=== PATIENT | female | born 1980 | race Caucasian/White ===

== ENCOUNTER 2017-07-16 01:16 | Emergency (ER) | payer OTHER ==
[~2017-07-16] VITALS: Ht 154.9 cm; Wt 63.5 kg
[2017-07-16] MEDS ORDERED: fentaNYL INJECTION 100 MCG/2 ML AMP IVP ONE (01:30)
[2017-07-16] MEDS ORDERED: ACETAMINOPHEN 500 MG TAB (TYLENOL) PO ONE (01:30)
[2017-07-16] MEDS ORDERED: ONDANSETRON 4 MG/2 ML (SDV) Z0FRAN IVP ONE (01:30)
--- NOTE | 2017-07-16 01:34 | ED Abdominal Pain ---
General Stated Complaint: ABD PAIN Source of Information: Patient, EMS Exam Limitations: No Limitations History of Present Illness Date Seen by Provider: Jul 16, 2017 Time Seen by Provider: 01:16 Initial Comments The patient presents to ER by EMS with a chief complaint of for the last 5 hours she's been experiencing severe lower bilateral abdominal pain. She's also been having some bleeding and spotting with clots since yesterday. She denies any illicit drug use. She says she is a with one miscarriage. She does not know her last missed her period but she thinks was in April putting her somewhere around 3 months. She has not taken anything for the pain tonight. She is not having painful urination. She is having some nausea without vomiting. No shortness breath, cough, chest pain. She says she had prematurity with previous pregnancies but she has not established with an OB for this . The patient rates her pain is severe. It is made worse by straining her legs or sitting up. She is not having any diarrhea or constipation. Allergies and Home Medications Allergies Coded Allergies: No Known Drug Allergies (Unverified , 07/16/17) Patient Home Medication List Home Medication List Reviewed: Yes Review of Systems Constitutional: see HPI (history of present illness is limited secondary to her pain.), chills, diaphoresis; No fever EENTM: No Blurred Vision, No Double Vision Respiratory: Denies Cough, Denies Orthopnea Cardiovascular: Denies Chest Pain, Denies Edema, Denies Irregular Heart Rate Gastrointestinal: See HPI; Denies Abdomen Distended; Abdominal Pain; Denies Constipated, Denies Diarrhea; Nausea, Poor Fluid Intake; Denies Vomiting Genitourinary: Denies Burning, Denies Discharge Musculoskeletal: No back pain, No joint pain Skin: No pruritus, No rash Past Boxawcc-Isqmgj-Bkgxdc Hx Patient Social History Alcohol Use: Occasionally Uses Recreational Drug Use: Yes Smoking Status: Current Everyday Smoker Type Used: Cigarettes Recent Foreign Travel: No Contact w/Someone Who Travel: No Physical Exam Vital Signs Vital Signs - First Documented 07/16/17 01:16 Temp 97.0 Pulse 76 Resp 20 B/P (MAP) 107/58 (74) Pulse Ox 100 O2 Delivery Room Air Capillary Refill : General Appearance: WD/WN, moderate distress HEENT: PERRL/EOMI, pharynx normal Neck: non-tender, normal inspection Respiratory: chest non-tender, lungs clear, normal breath sounds, no respiratory distress, no accessory muscle use Cardiovascular: normal peripheral pulses, regular rate, rhythm Peripheral Pulses: 2+ Dorsalis Pedis (R), 2+ Left Dors-Pedis (L), 2+ Radial Pulses (R), 2+ Radial Pulses (L) Gastrointestinal: normal bowel sounds, guarding; No rebound; tenderness ( bilateral lower quadrants and suprapubic region) Genital/Rectal: other (blood at the vaginal introitus without clots seen) Neurologic/Psychiatric: alert, oriented x 3, other (agitated, anxious) Skin: normal color, warm/dry Progress/Results/Core Measures Lab Results Laboratory Tests Test 07/16/17 01:40 Range/Units White Blood Count 16.7 H 4.3-11.0 10^3/uL Red Blood Count 3.99 L 4.35-5.85 10^6/uL Hemoglobin 12.4 11.5-16.0 G/DL Hematocrit 36 35-52 % Mean Corpuscular Volume 90 80-99 FL Mean Corpuscular Hemoglobin 31 25-34 PG Mean Corpuscular Hemoglobin Concent 35 32-36 G/DL Red Cell Distribution Width 12.0 10.0-14.5 % Platelet Count 264 130-400 10^3/uL Mean Platelet Volume 10.7 H 7.4-10.4 FL Neutrophils (%) (Auto) 78 H 42-75 % Lymphocytes (%) (Auto) 15 12-44 % Monocytes (%) (Auto) 5 0-12 % Eosinophils (%) (Auto) 2 0-10 % Basophils (%) (Auto) 0 0-10 % Neutrophils # (Auto) 13.0 H 1.8-7.8 X 10^3 Lymphocytes # (Auto) 2.5 1.0-4.0 X 10^3 Monocytes # (Auto) 0.9 0.0-1.0 X 10^3 Eosinophils # (Auto) 0.3 0.0-0.3 10^3/uL Basophils # (Auto) 0.0 0.0-0.1 10^3/uL Neutrophils % (Manual) 74 % Lymphocytes % (Manual) 19 % Monocytes % (Manual) 3 % Eosinophils % (Manual) 0 % Basophils % (Manual) 0 % Band Neutrophils 2 % Reactive Lymphocytes 2 % Blood Morphology Comment NORMAL Sodium Level 140 135-145 MMOL/L Potassium Level 3.2 L 3.6-5.0 MMOL/L Chloride Level 108 H 98-107 MMOL/L Carbon Dioxide Level 22 21-32 MMOL/L Anion Gap 10 5-14 MMOL/L Blood Urea Nitrogen 12 7-18 MG/DL Creatinine 0.85 0.60-1.30 MG/DL Estimat Glomerular Filtration Rate > 60 BUN/Creatinine Ratio 14 Glucose Level 146 H 70-105 MG/DL Calcium Level 8.3 L 8.5-10.1 MG/DL Magnesium Level 2.0 1.8-2.4 MG/DL Total Bilirubin 0.3 0.1-1.0 MG/DL Aspartate Amino Transf (AST/SGOT) 15 5-34 U/L Alanine Aminotransferase (ALT/SGPT) 12 0-55 U/L Alkaline Phosphatase 66 40-136 U/L Troponin I < 0.30 <0.30 NG/ML Total Protein 6.1 L 6.4-8.2 GM/DL Albumin 3.8 3.2-4.5 GM/DL Human Chorionic Gonadotropin, Quant 849 H <5 MIU/ML Serum Alcohol < 10 <10 MG/DL My Orders Orders - SANTIAGO MAYFIELD Alcohol (07/16/17:21) Cbc With Automated Diff (07/16/17:21) Comprehensive Metabolic Panel (07/16/17:21) Drug Screen Stat (Urine) (07/16/17:21) Hcg,Quantitative (07/16/17:21) Magnesium (07/16/17:21) Troponin I (07/16/17:21) Ua Culture If Indicated (07/16/17:21) Abo Rh Type (07/16/17:21) Us Ob Single Fetus<14 [id number] (07/16/17 01:21) Ondansetron Injection (Zofran Injectio (07/16/17 01:30) Acetaminophen Tablet (Tylenol Tablet) (07/16/17 01:30) Fentanyl Injection (Sublimaze Injection (07/16/17 01:30) Lorazepam Injection (Ativan Injection) (07/16/17 01:49) Lorazepam Injection (Ativan Injection) (07/16/17 02:00) Manual Differential (07/16/17 01:40) Medications Given in ED Current Medications Medications Dose Ordered Sig/Neel Route Start Time Stop Time Status Last Admin Dose Admin Fentanyl Citrate 50 mcg ONCE ONCE IVP 07/16/17 01:30 07/16/17 01:31 DC 07/16/17 01:35 50 MCG Lorazepam 2 mg ONCE ONCE IVP 07/16/17 02:00 07/16/17 02:01 DC 07/16/17 01:57 2 MG Ondansetron HCl 4 mg ONCE ONCE IVP 07/16/17 01:30 07/16/17 01:31 DC 07/16/17 01:35 4 MG Vital Signs/I&O 07/16/17 01:16 Temp 97.0 Pulse 76 Resp 20 B/P (MAP) 107/58 (74) Pulse Ox 100 O2 Delivery Room Air Progress Note #1: Time: 02:36 Progress Note Leukocytosis and mild hypokalemia. Could be due partially to her nausea and vomiting. She does appear to be miscarrying and has a sac in the uterus with no apparent pole. After 50 g of fentanyl and 2 mg of Ativan and she is much more comfortable. Progress Note #2: Time: 04:15 Progress Note The patient feels much better now. She has not been able to provide a urine sample. She has an appointment at 2:00 this afternoon with her [employer] and she can follow-up and provide a urine sample there. Diagonstic Imaging: Ultrasound Plain Films/CT/US/NM/MRI: pelvis (transvaginal OB less than 14 weeks) Comments Ultrasound guesstimates 14 weeks. There is an amniotic sac that is empty with no apparent pole. Cervix is dilated. There is an irregular shaped intrauterine fluid collection measuring approximately 10 x 4 x 4 cm. It contains internal echogenic debris. No evidence of a pole or yolk sac. Findings concerning for an abnormal first trimester . Please correlate with beta hCG levels. Reviewed: Reviewed Night Hawk Study, Reviewed by Me Departure Impression Primary Impression: Incomplete miscarriage with blood clot Disposition: HOME, SELF-CARE Condition: Improved Departure-Patient Inst. Decision time for Depature: 04:16 Patient Instructions: Miscarriage (DC) Add. Discharge Instructions: Please keep your follow-up appointment at 2:00 this afternoon with the [employer]. SANTIAGO MAYFIELD Jul 16, 2017 01:34
[2017-07-16] MEDS ORDERED: LORazepam INJ 2 MG/ML (ATIVAN) VIAL ONE (01:49)
[2017-07-16] MEDS ORDERED: LORazepam INJ 2 MG/ML (ATIVAN) VIAL IVP ONE (02:00)
[2017-07-16 02:03] LABS: BASOPHILS % (AUTO) 0 % (0-10); EOSINOPHILS # (AUTO) 0.3 10^3/uL (0.0-0.3); EOSINOPHILS % (AUTO) 2 % (0-10); HEMATOCRIT 36 % (35-52); HEMOGLOBIN 12.4 G/DL (11.5-16.0); LYMPHOCYTES # (AUTO) 2.5 X 10^3 (1.0-4.0); LYMPHOCYTES % (AUTO) 15 % (12-44); MEAN CORPUSCULAR HEMOGLOBIN 31 PG (25-34); MEAN CORPUSCULAR HGB CONC 35 G/DL (32-36); MEAN CORPUSCULAR VOLUME 90 FL (80-99); MEAN PLATELET VOLUME 10.7 FL (7.4-10.4); MONOCYTES # (AUTO) 0.9 X 10^3 (0.0-1.0); MONOCYTES % (AUTO) 5 % (0-12); NEUTROPHILS % (AUTO) 78 % (42-75); PLATELET COUNT 264 10^3/uL (130-400); RED BLOOD COUNT 3.99 10^6/uL (4.35-5.85); WHITE BLOOD COUNT 16.7 10^3/uL (4.3-11.0)
[2017-07-16 02:19] LABS: BAND NEUTROPHILS 2 %; BASOPHILS % (MANUAL) 0 %; EOSINOPHILS % (MANUAL) 0 %; LYMPHOCYTES % (MANUAL) 19 %; MONOCYTES % (MANUAL) 3 %; NEUTROPHILS % (MANUAL) 74 %; REACTIVE LYMPHOCYTES 2 %
[2017-07-16 02:20] LABS: RBC MORPH NORMAL
[2017-07-16 02:29] LABS: ALANINE AMINOTRANSFERASE 12 U/L (0-55); ALBUMIN 3.8 GM/DL (3.2-4.5); ALKALINE PHOSPHATASE 66 U/L (40-136); BILIRUBIN,TOTAL 0.3 MG/DL (0.1-1.0); BUN/CREATININE RATIO 14; CALCIUM 8.3 MG/DL (8.5-10.1); CARBON DIOXIDE 22 MMOL/L (21-32); CHLORIDE 108 MMOL/L (98-107); CREATININE SERUM 0.85 MG/DL (0.60-1.30); GFR ESTIMATED > 60; GLUCOSE 146 MG/DL (70-105); POTASSIUM 3.2 MMOL/L (3.6-5.0); SODIUM 140 MMOL/L (135-145); TOTAL PROTEIN 6.1 GM/DL (6.4-8.2)
[2017-07-16 04:45] VITALS: BP 98/55
--- OUTSIDE RECORDS SUMMARY | 2017-07-16 12:24 | XMS REPORT ---
Author Author Atilio Bey [facility] Address [address] [place], [place] [id number] Care Team Providers Care Magisterial District Judge Name Role Phone Atilio Bey PCP Atilio Bey PreferredProvider Allergies and Adverse Reactions Name Reaction Notes PENICILLINS neck swelling Plan of Treatment Not available. Medications Active Name Start Date Estimated Completion Date SIG Comments alprazolam 1 mg oral tablet 01/09/2017 take 1 tablet by oral route 2 times a day as needed Breakthrough anxiety. No more than 2 a day Name Start Date Expiration Date SIG Comments acyclovir 200 mg oral capsule 10/24/2010 01/22/2011 take 2 capsule (200 mg) by oral route 2 times a day for 30 days TriAdvance 90-1-50 mg oral tablet 11/11/2010 11/06/2011 take 1 tablet by oral route once daily for 30 days Diflucan 150 mg oral tablet 01/17/2011 01/18/2011 take 1 tablet (150 mg) by oral route once Flagyl 500 mg oral tablet 12/15/2011 12/22/2011 take 1 tablet (500 mg) by oral route 2 times per day for 7 days Cipro 500 mg oral tablet 01/05/2015 01/12/2015 take 1 tablet (500 mg) by oral route every 12 hours for 7 days azithromycin 250 mg oral tablet 08/11/2015 08/16/2015 take 2 tablets (500 mg) by oral route once daily for 1 day then 1 tablet (250 mg) by oral route once daily for 4 days Augmentin 875-125 mg oral tablet 02/27/2016 03/05/2016 take 1 tablet by oral route every 12 hours for 7 days Zoloft 50 mg oral tablet 06/19/2016 12/16/2016 take 1 tablet (50 mg) by oral route once daily for 30 days Valium 2 mg oral tablet 06/19/2016 07/19/2016 take 1 tablet (2 mg) by oral route 2 times per day for 30 days metronidazole 500 mg oral tablet 12/18/2016 take 4 tablets (2 gram) by oral route once daily for 1 day azithromycin 250 mg oral tablet 12/18/2016 take 4 tablets (1,000 mg) by oral route as a single dose for 1 day Discontinued Name Start Date Discontinued Date SIG Comments Premesis Rx 1-200-75-12 cn-rv-am-mcg oral tablet, ER multiphase 24 hr 201006/10/2010 take 1 tablet by oral route once daily for 30 days Completion of Therapy Problem List Description Status Onset abnormal pap Active Depression and anxiety Active 11/01/2013 Vital Signs Date Time BP-Sys(mm[Hg] BP-Josee(mm[Hg]) HR(bpm) RR(rpm) Temp WT HT HC BMI BSA BMI Percentile O2 Sat(%) 01/09/2017 10:46:00 AM 120 mmHg 70 mmHg 82 bpm 16 rpm 97.1 F 160 lbs 61 in 30.23 kg/m2 1.77 m2 98 % 12/18/2016 5:44:00 PM 116 mmHg 78 mmHg 74 bpm 18 rpm 96.9 F 156 lbs 61 in 29.4756 kg/m 1.7451 m 99 % 11/13/2016 1:16:00 PM 119 mmHg 67 mmHg 68 bpm 98.7 F 158 lbs 61 in 29.85 kg/m2 1.76 m2 06/19/2016 3:14:00 PM 110 mmHg 66 mmHg 72 bpm 16 rpm 97.3 F 149.25 lbs 61 in 28.2003 kg/m 1.707 m 99 % 02/27/2016 5:28:00 PM 102 mmHg 70 mmHg 88 bpm 97.3 F 152 lbs 61 in 28.72 kg/m2 1.72 m2 96 % 08/29/2015 4:27:00 PM 110 mmHg 70 mmHg 83 bpm 16 rpm 97.6 F 159 lbs 99 % 08/11/2015 1:32:00 PM 120 mmHg 80 mmHg 90 bpm 16 rpm 98.9 F 156 lbs 61 in 29.48 kg/m2 1.75 m2 98 % 01/05/2015 11:22:00 AM 110 mmHg 70 mmHg 71 bpm 16 rpm 97.8 F 165 lbs 99 % 10/28/2013 1:39:00 PM 104 mmHg 70 mmHg 67 bpm 16 rpm 97.6 F 155.375 lbs 61 in 29.36 kg/m2 1.74 m2 97 % 07/08/2013 1:45:00 PM 115 mmHg 70 mmHg 72 bpm 16 rpm 143 lbs 98 % 06/03/2013 2:51:00 PM 130 mmHg 70 mmHg 78 bpm 16 rpm 98.2 F 148 lbs 60 in 28.90 kg/m2 1.69 m2 99 % 11/10/2011 3:17:00 PM 108 mmHg 68 mmHg 68 bpm 98.4 F 139.375 lbs 60 in 27.2195 kg/m 1.6359 m 02/18/2011 4:03:00 PM 114 mmHg 68 mmHg 83 bpm 97.6 F 01/27/2011 10:50:00 AM 105 mmHg 72 mmHg 70 bpm 97.6 F 146 lbs 60 in 28.5134 kg/m 1.6744 m 06/10/2010 9:37:00 AM 105 mmHg 65 mmHg 94 bpm 98.2 F 143 lbs 60 in 27.93 kg/m2 1.66 m2 Social History Name Description Comments Tobacco Current every day smoker Alcohol Use - Occasional socially when not History of Procedures Date Ordered Description Order Status 11/29/2010 12:00 AM CULTURE OTHR SPECIMN AEROBIC Reviewed 02/19/2015 12:00 AM URINALYSIS AUTO W/SCOPE Reviewed 01/27/2011 12:00 AM CYTOPATH C/V MANUAL Reviewed 01/27/2011 12:00 AM SPECIMEN HANDLING OFFICE-LAB Reviewed 01/27/2011 12:00 AM CHLAMYDIA CULTURE Reviewed 01/27/2011 12:00 AM N.GONORRHOEAE DNA AMP PROB Reviewed 02/18/2011 12:00 AM INSERT INTRAUTERINE DEVICE Reviewed 02/18/2011 12:00 AM Mirena Reviewed 02/18/2011 12:00 AM URINE TEST Reviewed 02/27/2016 12:00 AM Decadron, Per 1 Mg [facility]# [address]-29 Reviewed 02/27/2016 12:00 AM Depo-Medrol, Per 80 Mg [facility]#[address]-80 Reviewed 11/10/2011 12:00 AM TRICHOMONAS ASSAY W/OPTIC Reviewed 11/10/2011 12:00 AM CHYLMD TRACH DNA AMP PROBE Reviewed 11/10/2011 12:00 AM N.GONORRHOEAE DNA AMP PROB Reviewed 11/13/2016 12:00 AM REMOVE INTRAUTERINE DEVICE Reviewed 12/18/2016 6:02 PM URINALYSIS AUTO W/O SCOPE Reviewed 12/18/2016 12:00 AM THER/PROPH/DIAG INJ SC/IM Reviewed 12/18/2016 12:00 AM Rocephin 250 Mg Injection Reviewed 12/18/2016 12:00 AM CHYLMD TRACH DNA AMP PROBE Returned 12/18/2016 12:00 AM N.GONORRHOEAE DNA AMP PROB Reviewed 12/18/2016 12:00 AM URINALYSIS AUTO W/SCOPE Reviewed 06/10/2010 12:00 AM CYTOPATH C/V THIN LAYER Reviewed 06/10/2010 12:00 AM SPECIMEN HANDLING OFFICE-LAB Reviewed 06/10/2010 12:00 AM N.GONORRHOEAE DNA AMP PROB Reviewed 06/10/2010 12:00 AM CHLAMYDIA CULTURE Reviewed 06/10/2010 12:00 AM OBSTETRIC PANEL Reviewed 06/10/2010 12:00 AM HIV-1ANTIBODY Reviewed 06/10/2010 12:00 AM URINALYSIS AUTO W/SCOPE Reviewed 06/10/2010 12:00 AM HERPES SIMPLEX BRANDIE ANTBDY Reviewed 06/10/2010 12:00 AM HERPES SIMPLEX TYPE 1 TEST Reviewed 06/10/2010 12:00 AM TRANSVAGINAL US OBSTETRIC Reviewed 06/10/2010 12:00 AM URINE TEST Reviewed 08/07/2010 12:00 AM OB US >/=14 WKS SNGL FETUS Reviewed 10/03/2010 12:00 AM GLUCOSE TEST Reviewed 10/03/2010 12:00 AM ASSAY OF FIBRONECTIN Reviewed 10/17/2010 12:00 AM COMPLETE CBC W/AUTO DIFF WBC Reviewed 10/17/2010 12:00 AM Type and screen Reviewed 10/17/2010 12:00 AM ASSAY OF FIBRONECTIN Reviewed 10/31/2010 12:00 AM ASSAY OF FIBRONECTIN Reviewed Results Summary Date and Description Results 06/10/2010 10:53 AM RUBELLA 48.0 IU/mLWBC 8.8 RBC 4.12 HGB 12.20 g/dLHCT 36.60 % MCV 89.0 fLMCH 29.60 pgMCHC 33.30 g/dLRDW SD 40 RDW CV 12.50 %MPV 12.10 fLPLT 253 NRBC# 0.00 NRBC% 0.0 %NEUT 68.80 %%LYMP 22.10 %%MONO 5.60 %%EOS 3.30 %%BASO 0.20 %#NEUT 6.07 #LYMP 1.95 #MONO 0.49 #EOS 0.29 #BASO 0.02 MANUAL DIFF NOT IND 06/10/2010 12:23 PM COLOR YELLOW APPEARANCE CLEAR SPEC GRAV 1.020 pH 7.5 PROTEIN NEGATIVE GLUCOSE NEGATIVE KETONE NEGATIVE BILIRUBIN NEGATIVE BLOOD NEGATIVE NITRITE NEGATIVE LEUK SCREEN NEGATIVE WBC/HPF RARE RBC/HPF 0-5 CASTS/ LPF NEGATIVE CRYSTALS TRACE AMORPH MUCOUS THRDS FEW BACTERIA FEW EPITH CELLS 1+ SQUAMOUS TRICHOMONAS NEGATIVE YEAST NEGATIVE CULT ORDERED YES 10/03/2010 1:20 PM GLUCOSE 116.0 mg/dL 10/17/2010 11:30 AM WBC 12.6 RBC 3.69 HGB 11.40 g/dLHCT 33.40 %MCV 91.0 fLMCH 30.90 pgMCHC 34.10 g/dLRDW SD 42 RDW CV 13.0 %MPV 10.60 fLPLT 304 NRBC# 0.00 NRBC% 0.0 %NEUT 66.60 %%LYMP 23.60 %%MONO 7.60 %%EOS 2.0 %%BASO 0.20 %#NEUT 8.38 #LYMP 2.97 #MONO 0.95 #EOS 0.25 #BASO 0.02 MANUAL DIFF NOT IND 11/29/2010 1:08 PM No 12/18/2016 2:07 PM Neisseria Gonorrhoeae NEGATIVE Chlamydia Trachomatis NEGATIVE 12/18/2016 6:02 PM Clarity Ur CLEAR Color Ur LT. YELLOW Glucose Ur-sCnc NEGATIVE Bilirub Ur Ql Strip NEGATIVE Ketones Ur Ql Strip NEGATIVE Sp Gr Ur Qn < =1.005 Hgb Ur Ql Strip NEGATIVE pH Ur-LsCnc 7.0 Prot Ur Ql Strip NEGATIVE Urobilinogen Ur-mCnc 0.2 E.U Nitrite Ur Ql Strip NEGATIVE WBC Est Ur Ql Strip SMALL 12/18/2016 10:10 PM COLOR YELLOW APPEARANCE SL CLOUDY SPEC GRAV 1.010 pH 7.0 PROTEIN NEGATIVE GLUCOSE NEGATIVE mg/dLKETONE NEGATIVE BILIRUBIN NEGATIVE BLOOD NEGATIVE NITRITE NEGATIVE LEUK SCREEN SMALL WBC/HPF 5-10 RBC/HPF NEGATIVE CASTS/ LPF NEGATIVE /LPFCRYSTALS NEGATIVE MUCOUS THRDS NEGATIVE BACTERIA 1+ EPITH CELLS FEW SQUAMOUS /HPFTRICHOMONAS NEGATIVE YEAST NEGATIVE CULT SET UP? YES History Of Immunizations Not available. History of Past Illness Name Date of Onset Comments abnormal pap Depression and anxiety 11/01/2013 test confirmed positive Jun 10 2010 9:38AM , Other Normal Jul 08 2010 2:41PM , Other Normal Oct 03 2010 10:06AM Threatened Premature Labor Oct 03 2010 10:32AM , High Risk Oct 17 2010 10:36AM Threatened Premature Labor Oct 17 2010 11:02AM Threatened Premature Labor Oct 31 2010 12:31PM Group B Strep Screening, Nov 29 2010 10:45AM Post- Follow-Up Jan 27 2011 10:50AM IUD insertion Feb 18 2011 3:58PM Special investigations and examinations; examination or test; examination or test, negative result Feb 18 2011 4:26PM Non-specific vaginitis Nov 10 2011 3:21PM Dysuria Dec 15 2011 1:24PM Anxiety Disorder Jun 03 2013 2:53PM Anxiety Disorder Jul 08 2013 1:46PM Depression and anxiety Oct 28 2013 1:44PM Depression and anxiety Jan 05 2015 11:23AM Acute frontal sinusitis, recurrence not specified Jan 05 2015 11:23AM Dysuria Feb 19 2015 3:06PM Upper respiratory infection Aug 11 2015 1:34PM Depression and anxiety Aug 29 2015 4:29PM Bronchitis Feb 27 2016 5:32PM Anxiety associated with depression Jun 19 2016 3:17PM Encounter for IUD removal Nov 13 2016 1:18PM Unprotected sex Dec 18 2016 5:48PM Dysuria Dec 18 2016 5:48PM Frequency of urination Dec 18 2016 5:48PM Anxiety Jan 09 2017 10:48AM Payers Insurance Name Company Name Plan Name Plan Number Policy Number Policy Group Number Start Date [facility] [id number] N/A [place] Prog [id number] N/A [employer] Financial Assistance [place] [employer] [place] 50 PERCENT April zzzTest Medicare A Test Medicare A [id number] N/A BCBS [employer] [place] [id number] N/A History of Encounters Visit Date Visit Type Provider 01/09/2017 Office visit Atilio Bey CLEAN ROOM ASSEMBLER 12/18/2016 Office visit Alexa Rowe CLEAN ROOM ASSEMBLER 11/13/2016 Office visit Shayna Ferro CLEAN ROOM ASSEMBLER 06/19/2016 Office visit Atilio Bey CLEAN ROOM ASSEMBLER 02/27/2016 Office visit Atilio Bey CLEAN ROOM ASSEMBLER 08/29/2015 Office visit Atilio Bey CLEAN ROOM ASSEMBLER 08/11/2015 Office visit Molly Ramirez CLEAN ROOM ASSEMBLER 01/05/2015 Office visit Atilio Bey CLEAN ROOM ASSEMBLER 10/28/2013 Office visit Atilio Bey CLEAN ROOM ASSEMBLER 07/08/2013 Office visit Atilio Bey CLEAN ROOM ASSEMBLER 06/03/2013 Office visit Atilio Bey CLEAN ROOM ASSEMBLER 11/10/2011 Office visit Luis Fernando Rice MD 02/18/2011 Office visit Luis Fernando Rice MD 01/27/2011 Office visit Luis Fernando Rice MD 11/29/2010 Office visit Luis Fernando Rice MD 11/29/2010 Office visit Guerrero Del Valle MD 11/11/2010 Office visit Luis Fernando Rice MD 10/31/2010 Office visit Luis Fernando Rice MD 10/24/2010 Office visit Luis Fernando Rice MD 10/17/2010 Office visit Luis Fernando Rice MD 10/03/2010 [facility] Luis Fernando Rice MD 10/03/2010 Office visit Luis Fernando Rice MD 09/09/2010 Office visit Luis Fernando Rice MD 08/07/2010 Office visit Luis Fernando Rice MD 07/08/2010 Office visit Luis Fernando Rice MD 06/10/2010 Office visit Luis Fernando Rice MD
--- OUTSIDE RECORDS SUMMARY | 2017-07-16 12:25 | XMS REPORT ---
Author Author Atilio Bey [facility] Address [address] [place], [place] [id number] Care Team Providers Care Yeast Pusher Name Role Phone Atilio Bey PCP Atilio [...] Discontinued Date SIG Comments Premesis Rx 1-200-75-12 la-hi-du-mcg oral tablet, ER multiphase 24 hr 201006/10/2010 [...] 02/27/2016 12:00 AM Decadron, Per 1 Mg [facility]# [address]-32 Reviewed 02/27/2016 12:00 AM Depo-Medrol, Per 80 Mg [facility]#[id number] Reviewed 11/10/2011 12:00 AM TRICHOMONAS ASSAY W/OPTIC [...] Neisseria Gonorrhoeae NEGATIVE Chlamydia Trachomatis NEGATIVE 12/18/2016 10:10 PM COLOR YELLOW APPEARANCE SL [...] Policy Number Policy Group Number Start Date [facility] [id number] N/A [place] Medical [place] Medical [place] Prog [id number] N/A [employer] Financial Assistance [place] [employer] [place] 50 PERCENT April zzzTest Medicare A Test Medicare A [id number] N/A BCBS [employer] [place] [id number] N/A History of Encounters Visit Date Visit Type Provider 01/09/2017 Office visit Atilio Bey LICENSE CLERK 12/18/2016 Office visit Alexa Rowe LICENSE CLERK 11/13/2016 Office visit Shayna Ferro LICENSE CLERK 06/19/2016 Office visit Atilio Bey LICENSE CLERK 02/27/2016 Office visit Atilio Bey LICENSE CLERK 08/29/2015 Office visit Atilio Bey LICENSE CLERK 08/11/2015 Office visit Molly Ramirez LICENSE CLERK 01/05/2015 Office visit Atilio Bey APRN 10/28/2013 Office visit Atilio Bey LICENSE CLERK 07/08/2013 Office visit Atilio Bey LICENSE CLERK 06/03/2013 Office visit Atilio Bey LICENSE CLERK 11/10/2011 Office visit Luis Fernando Rice MD [...] Office visit Luis Fernando Rice MD 10/03/2010 [facility] Luis Fernando Rice MD 10/03/2010 Office visit Luis Fernando Rice MD 09/09/2010 Office visit Luis Fernando Rice MD 08/07/2010 Office visit Luis Fernando Rice MD 07/08/2010 Office visit Luis Fernando Rice MD 06/10/2010 Office visit Luis Fernando Rice MD
--- OUTSIDE RECORDS SUMMARY | 2017-07-16 12:25 | XMS REPORT ---
Author Author Atilio Bey [facility] Address [address] [place], [place] [address] Care Team Providers Care Emergency Department Name Role Phone Atilio Bey PCP Atilio [...] Discontinued Date SIG Comments Premesis Rx 1-200-75-12 ok-ng-vg-mcg oral tablet, ER multiphase 24 hr 201006/10/2010 [...] 02/27/2016 12:00 AM Decadron, Per 1 Mg [facility]# [id number] Reviewed 02/27/2016 12:00 AM Depo-Medrol, Per 80 Mg [facility]#[id number] Reviewed 11/10/2011 12:00 AM TRICHOMONAS ASSAY W/OPTIC [...] Policy Number Policy Group Number Start Date [facility] [id number] N/A [place] Medical [place] Medical [place] Prog [id number] N/A [employer] Financial Assistance [employer] [place] 50 PERCENT April zzzTest Medicare A Test Medicare A [id number] N/A BCBS [employer] [place] [id number] N/A History of Encounters Visit Date Visit Type Provider 01/09/2017 Office visit Atilio Bey CARBIDE TOOL DIE MAKER 12/18/2016 Office visit Alexa Rowe CARBIDE TOOL DIE MAKER 11/13/2016 Office visit Shayna Ferro CARBIDE TOOL DIE MAKER 06/19/2016 Office visit Atilio Bey CARBIDE TOOL DIE MAKER 02/27/2016 Office visit Atilio Bey CARBIDE TOOL DIE MAKER 08/29/2015 Office visit Atilio Bey CARBIDE TOOL DIE MAKER 08/11/2015 Office visit Molly Ramirez CARBIDE TOOL DIE MAKER 01/05/2015 Office visit Atilio Bey APRN 10/28/2013 Office visit Atilio Bey CARBIDE TOOL DIE MAKER 07/08/2013 Office visit Atilio Bey CARBIDE TOOL DIE MAKER 06/03/2013 Office visit Atilio Bey CARBIDE TOOL DIE MAKER 11/10/2011 Office visit Luis Fernando Rice MD [...] Office visit Luis Fernando Rice MD 10/03/2010 [facility] Luis Fernando Rice MD 10/03/2010 Office visit Luis Fernando Rice MD 09/09/2010 Office visit Luis Fernando Rice MD 08/07/2010 Office visit Luis Fernando Rice MD 07/08/2010 Office visit Luis Fernando Rice MD 06/10/2010 Office visit Luis Fernando Rice MD
--- OUTSIDE RECORDS SUMMARY | 2017-07-16 12:26 | XMS REPORT ---
Author Author Atilio eBy [facility] Address [address] [place], [place] [id number] Care Team Providers Care School Cook Name Role Phone Atilio Bey PCP Allergies and Adverse Reactions Name Reaction Notes PENICILLINS neck swelling Plan of Treatment Not available. Medications Active Name Start Date Estimated Completion Date SIG Comments alprazolam 0.5 mg oral tablet 01/05/2015 02/04/2015 take 1 tablet (0.5 mg) by oral route 3 times per day for 30 days Zoloft 50 mg oral tablet 01/05/2015 07/04/2015 take 1 tablet (50 mg) by oral route once daily for 30 days Cipro 500 mg oral tablet 01/05/2015 01/12/2015 take 1 tablet (500 mg) by oral route every 12 hours for 7 days Name Start Date Expiration Date SIG Comments [...] 2 times per day for 7 days Discontinued Name Start Date Discontinued Date SIG Comments Premesis Rx 1-200-75-12 fu-oe-ol-mcg oral tablet, ER multiphase 24 hr 201006/10/2010 take 1 tablet by oral route once daily for 30 days Completion of Therapy Problem List Description Status Onset abnormal pap Active Depression and anxiety Active 11/01/2013 Vital Signs Date Time BP-Sys(mm[Hg] BP-Josee(mm[Hg]) HR(bpm) RR(rpm) Temp WT HT HC BMI BSA BMI Percentile O2 Sat(%) 01/05/2015 11:22:00 AM 110 mmHg 70 mmHg 71 bpm 16 rpm 97.8 F 165 lbs 99 % 10/28/2013 1:39:00 PM 104 mmHg 70 mmHg 67 bpm 16 rpm 97.6 F 155.375 lbs 61 in 29.3575 kg/m 1.7416 m 97 % 07/08/2013 1:45:00 PM 115 mmHg 70 mmHg 72 bpm 16 rpm 143 lbs 98 % 06/03/2013 2:51:00 PM 130 mmHg 70 mmHg 78 bpm 16 rpm 98.2 F 148 lbs 60 in 28.904 kg/m 1.6858 m 99 % 11/10/2011 3:17:00 PM 108 mmHg 68 mmHg 68 bpm 98.4 F 139.375 lbs 60 in 27.22 kg/m2 1.64 m2 02/18/2011 4:03:00 PM 114 mmHg 68 mmHg 83 bpm 97.6 F 01/27/2011 10:50:00 AM 105 mmHg 72 mmHg 70 bpm 97.6 F 146 lbs 60 in 28.51 kg/m2 1.67 m2 06/10/2010 9:37:00 AM 105 mmHg 65 mmHg 94 bpm 98.2 F 143 lbs 60 in 27.9275 kg/m 1.6571 m Social History Name Description Comments Tobacco Current every day smoker Alcohol Use - Occasional socially when not History of Procedures Date Ordered Description Order Status 11/29/2010 12:00 AM CULTURE OTHR SPECIMN AEROBIC Reviewed 01/27/2011 12:00 AM CYTOPATH C/V MANUAL Reviewed 01/27/2011 12:00 AM SPECIMEN HANDLING OFFICE-LAB Reviewed 01/27/2011 12:00 AM CHLAMYDIA CULTURE Reviewed 01/27/2011 12:00 AM N.GONORRHOEAE DNA AMP PROB Reviewed 02/18/2011 12:00 AM INSERT INTRAUTERINE DEVICE Reviewed 02/18/2011 12:00 AM Mirena Reviewed 02/18/2011 12:00 AM URINE TEST Reviewed 11/10/2011 12:00 AM TRICHOMONAS ASSAY W/OPTIC Returned 11/10/2011 12:00 AM CHYLMD TRACH DNA AMP PROBE Returned 11/10/2011 12:00 AM N.GONORRHOEAE DNA AMP PROB Returned 06/10/2010 12:00 AM CYTOPATH C/V THIN LAYER [...] AM ASSAY OF FIBRONECTIN Reviewed Results Summary Data and Description Results 06/10/2010 10:53 AM RUBELLA 48.0 IU/mLWBC 8.8 RBC 4.12 HGB 12.20 g/dLHCT 36.60 % MCV 89.0 fLMCH 29.60 pgMCHC 33.30 g/dLRDW CV 12.50 %MPV 12.10 fLPLT 253 %NEUT 68.80 %%LYMP 22.10 %%MONO 5.60 %%EOS 3.30 %%BASO 0.20 %#NEUT 6.07 #LYMP 1.95 # MONO 0.49 #EOS 0.29 #BASO 0.02 06/10/2010 12:23 PM COLOR YELLOW APPEARANCE CLEAR SPEC GRAV 1.020 pH 7.5 PROTEIN NEGATIVE GLUCOSE NEGATIVE KETONE NEGATIVE BILIRUBIN NEGATIVE BLOOD NEGATIVE NITRITE NEGATIVE LEUK SCREEN NEGATIVE CASTS/LPF NEGATIVE CRYSTALS TRACE AMORPH MUCOUS THRDS FEW BACTERIA FEW EPITH CELLS 1+ SQUAMOUS TRICHOMONAS NEGATIVE YEAST NEGATIVE 10/03/2010 1:20 PM GLUCOSE 116.0 mg/dL 10/03/2010 4:15 PM COLOR YELLOW APPEARANCE HAZY SPEC GRAV 1.020 pH 6.0 PROTEIN NEGATIVE GLUCOSE NEGATIVE KETONE NEGATIVE BILIRUBIN NEGATIVE BLOOD NEGATIVE NITRITE NEGATIVE LEUK SCREEN NEGATIVE CASTS/LPF NEGATIVE CRYSTALS NEGATIVE MUCOUS THRDS FEW BACTERIA 2++ EPITH CELLS 3+++ SQUAMOUS TRICHOMONAS NEGATIVE YEAST NEGATIVE 10/17/2010 11:30 AM WBC 12.6 RBC 3.69 HGB 11.40 g/dLHCT 33.40 %MCV 91.0 fLMCH 30.90 pgMCHC 34.10 g/dLRDW CV 13.0 %MPV 10.60 fLPLT 304 %NEUT 66.60 %%LYMP 23.60 %%MONO 7.60 %%EOS 2.0 %%BASO 0.20 %#NEUT 8.38 #LYMP 2.97 #MONO 0.95 #EOS 0.25 #BASO 0.02 History Of Immunizations Not available. History of [...] recurrence not specified Jan 05 2015 11:23AM Payers Insurance Name Company Name Plan Name Plan Number Policy Number Policy Group Number Start Date [place] Medical [place] Prog [id number] N/A [employer] Financial Assistance [employer] [place] [id number] N/A [facility] [id number] N/A [facility] [id number] N/A History of Encounters Visit Date Visit Type Provider 01/05/2015 Office visit Atilio Bey DIRECTOR MEDICAL AFFAIRS 10/28/2013 Office visit Atilio Bey DIRECTOR MEDICAL AFFAIRS 07/08/2013 Office visit Atilio Bey DIRECTOR MEDICAL AFFAIRS 06/03/2013 Office visit Atilio Bey APRN 11/10/2011 Office visit Luis Fernando Rice MD 02/18/2011 Office visit Luis Fernando Rice MD 01/27/2011 Office visit LuisF ernando Rice MD 11/29/2010 Office visit Luis Fernando Rice MD 11/29/2010 Office visit Guerrero Del Valle MD 11/11/2010 Office visit Luis Fernando Rice MD 10/31/2010 Office visit Luis Fernando Rice MD 10/24/2010 Office visit Luis Fernando Rice MD 10/17/2010 Office visit Luis Fernando Rice MD 10/03/2010 [facility] Luis Fernando Rice MD 10/03/2010 Office visit Luis Fernando Rice MD 09/09/2010 Office visit Luis Fernando Rice MD 08/07/2010 Office visit Luis Fernando Rice MD 07/08/2010 Office visit Luis Fernando Rcie MD 06/10/2010 Office visit Luis Fernando Rice MD
--- OUTSIDE RECORDS SUMMARY | 2017-07-16 12:26 | XMS REPORT ---
Author Author Atilio Bey [facility] Address [address] [place], [place] [id number] Care Team Providers Care General Superintendent Name Role Phone Atilio Bey PCP Atilio Bey PreferredProvider Allergies and Adverse Reactions Name Reaction Notes PENICILLINS neck swelling Plan of Treatment Not available. Medications Active Name Start Date Estimated Completion Date SIG Comments alprazolam 1 mg oral tablet 02/06/2017 take 1 tablet by oral route 2 [...] Discontinued Date SIG Comments Premesis Rx 1-200-75-12 to-tj-fe-mcg oral tablet, ER multiphase 24 hr 201006/10/2010 take 1 tablet by oral route once daily for 30 days Completion of Therapy Problem List Description Status Onset abnormal pap Active Depression and anxiety Active 11/01/2013 Vital Signs Date Time BP-Sys(mm[Hg] BP-Josee(mm[Hg]) HR(bpm) RR(rpm) Temp WT HT HC BMI BSA BMI Percentile O2 Sat(%) 02/06/2017 11:16:00 AM 98 mmHg 62 mmHg 76 bpm 18 rpm 96.7 F 161.5 lbs 61 in 30.51 kg/m2 1.78 m2 96 % 01/09/2017 10:46:00 AM 120 mmHg 70 mmHg 82 bpm 16 rpm 97.1 F 160 lbs 61 in 30.2314 kg/m 1.7674 m 98 % 12/18/2016 5:44:00 PM 116 mmHg 78 mmHg 74 bpm 18 rpm 96.9 F 156 lbs 61 in 29.48 kg/m2 1.75 m2 99 % 11/13/2016 1:16:00 PM 119 mmHg 67 mmHg 68 bpm 98.7 F 158 lbs 61 in 29.8535 kg/m 1.7563 m 06/19/2016 3:14:00 PM 110 mmHg 66 mmHg 72 bpm 16 rpm 97.3 F 149.25 lbs 61 in 28.20 kg/m2 1.71 m2 99 % 02/27/2016 5:28:00 PM 102 mmHg 70 mmHg 88 bpm 97.3 F 152 lbs 61 in 28.7199 kg/m 1.7226 m 96 % 08/29/2015 4:27:00 PM 110 mmHg 70 mmHg 83 bpm 16 rpm 97.6 F 159 lbs 99 % 08/11/2015 1:32:00 PM 120 mmHg 80 mmHg 90 bpm 16 rpm 98.9 F 156 lbs 61 in 29.4756 kg/m 1.7451 m 98 % 01/05/2015 11:22:00 AM 110 mmHg [...] 02/27/2016 12:00 AM Decadron, Per 1 Mg [facility]# [address]-31 Reviewed 02/27/2016 12:00 AM Depo-Medrol, Per 80 Mg [facility]#[address]-01 Reviewed 11/10/2011 12:00 AM TRICHOMONAS ASSAY W/OPTIC [...] 2016 5:48PM Anxiety Jan 09 2017 10:48AM Anxiety Feb 06 2017 11:19AM Payers Insurance Name Company Name Plan Name Plan Number Policy Number Policy Group Number Start Date [facility] [id number] N/A [place] Medical [place] Program [place] Prog [id number] N/A [employer] Financial Assistance [employer] [place] 50 PERCENT , April 06, 2014 zzzTest Medicare A Test Medicare A [id number] N/A BCBS [employer] [place] [id number] N/A History of Encounters Visit Date Visit Type Provider 02/06/2017 Office visit Atilio Bey MAKE UP OPERATOR HELPER 01/09/2017 Office visit Atilio Cunninghamran MAKE UP OPERATOR HELPER 12/18/2016 Office visit Alexa Rowe MAKE UP OPERATOR HELPER 11/13/2016 Office visit Shayna Lexi Ferro MAKE UP OPERATOR HELPER 06/19/2016 Office visit Atilio Cunninghamran MAKE UP OPERATOR HELPER 02/27/2016 Office visit Atilio Cunninghamran MAKE UP OPERATOR HELPER 08/29/2015 Office visit Atilio Cunninghamran MAKE UP OPERATOR HELPER 08/11/2015 Office visit Molly Hobsondez MAKE UP OPERATOR HELPER 01/05/2015 Office visit Atilio Cunninghamran MAKE UP OPERATOR HELPER 10/28/2013 Office visit Atilio Cunninghamran MAKE UP OPERATOR HELPER 07/08/2013 Office visit Atilio Bey MAKE UP OPERATOR HELPER 06/03/2013 Office visit Atilio Bey MAKE UP OPERATOR HELPER 11/10/2011 Office visit Luis Fernando Rice MD [...] Office visit Luis Fernando Rice MD 10/03/2010 [facility] Luis Fernando Rice MD 10/03/2010 Office visit Luis Fernando Rice MD 09/09/2010 Office visit Luis Fernando Rice MD 08/07/2010 Office visit Luis Fernando Rice MD 07/08/2010 Office visit Luis Fernando Rice MD 06/10/2010 Office visit Luis Fernando Rice MD
--- OUTSIDE RECORDS SUMMARY | 2017-07-16 12:27 | XMS REPORT ---
Author Author Shayna Ferro [facility] Address [address] [place], [place] [id number] Care Team Providers Care Retread Supervisor Name Role Phone Shayna Ferro PCP Unavailable Atilio Bey PreferredProvider Allergies and Adverse Reactions Name Reaction Notes PENICILLINS neck swelling Plan of Treatment Not available. Medications Active Name Start Date Estimated Completion Date SIG Comments Zoloft 50 mg oral tablet 06/19/2016 12/16/2016 take 1 tablet (50 mg) by oral route once daily for 30 days alprazolam 0.5 mg oral tablet 06/19/2016 take 1 tablet by oral route As needed Breakthrough anxiety. No more than 2 [...] route every 12 hours for 7 days Valium 2 mg oral tablet 06/19/2016 07/19/2016 take 1 tablet (2 mg) by oral route 2 times per day for 30 days Discontinued Name Start Date Discontinued Date SIG Comments Premesis Rx 1-200-75-12 em-zf-cz-mcg oral tablet, ER multiphase 24 hr 201006/10/2010 take 1 tablet by oral route once daily for 30 days Completion of Therapy Problem List Description Status Onset abnormal pap Active Depression and anxiety Active 11/01/2013 Vital Signs Date Time BP-Sys(mm[Hg] BP-Josee(mm[Hg]) HR(bpm) RR(rpm) Temp WT HT HC BMI BSA BMI Percentile O2 Sat(%) 11/13/2016 1:16:00 PM 119 mmHg 67 mmHg [...] 02/27/2016 12:00 AM Decadron, Per 1 Mg [facility]# [address]-66 Reviewed 02/27/2016 12:00 AM Depo-Medrol, Per 80 Mg [facility]#[address]-65 Reviewed 11/10/2011 12:00 AM TRICHOMONAS ASSAY W/OPTIC Reviewed 11/10/2011 12:00 AM CHYLMD TRACH DNA AMP PROBE Reviewed 11/10/2011 12:00 AM N.GONORRHOEAE DNA AMP PROB Reviewed 11/13/2016 12:00 AM REMOVE INTRAUTERINE DEVICE Reviewed 06/10/2010 12:00 AM CYTOPATH C/V THIN [...] TRICHOMONAS NEGATIVE YEAST NEGATIVE CULT ORDERED YES NO 10/03/2010 1:20 PM GLUCOSE 116.0 mg/dL 10/03/2010 4:15 PM SMALL COLOR YELLOW APPEARANCE HAZY SPEC GRAV 1.020 pH 6.0 PROTEIN NEGATIVE GLUCOSE NEGATIVE KETONE NEGATIVE BILIRUBIN NEGATIVE BLOOD NEGATIVE NITRITE NEGATIVE LEUK SCREEN NEGATIVE WBC/HPF RARE RBC/HPF NEGATIVE CASTS/LPF NEGATIVE CRYSTALS NEGATIVE MUCOUS THRDS FEW BACTERIA 2++ EPITH CELLS 3 +++ SQUAMOUS TRICHOMONAS NEGATIVE YEAST NEGATIVE CULT SET UP? YES 10/17/2010 11:30 AM WBC 12.6 RBC 3.69 HGB 11.40 g/dLHCT 33.40 %MCV 91.0 fLMCH 30.90 pgMCHC 34.10 g/dLRDW SD 42 RDW CV 13.0 %MPV 10.60 fLPLT 304 NRBC# 0.00 NRBC% 0.0 %NEUT 66.60 %%LYMP 23.60 %%MONO 7.60 %%EOS 2.0 %%BASO 0.20 %#NEUT 8.38 #LYMP 2.97 #MONO 0.95 #EOS 0.25 #BASO 0.02 MANUAL DIFF NOT IND 11/29/2010 1:08 PM No History Of Immunizations Not available. History of [...] for IUD removal Nov 13 2016 1:18PM Payers Insurance Name Company Name Plan Name Plan Number Policy Number Policy Group Number Start Date [facility] [id number] N/A [place] Medical [place] Program [place] Prog [id number] N/A [employer] Financial Assistance [employer] Financial [place] 50 PERCENT , April 06, 2014 zzzTest Medicare A Test Medicare A [id number] N/A BCBS [facility] [id number] N/A History of Encounters Visit Date Visit Type Provider 11/13/2016 Office visit Shayna Ferro MANUFACTURING PLANT CONTROLLER 06/19/2016 Office visit Atilio Bey MANUFACTURING PLANT CONTROLLER 02/27/2016 Office visit Atilio Bey MANUFACTURING PLANT CONTROLLER 08/29/2015 Office visit Atilio Bey MANUFACTURING PLANT CONTROLLER 08/11/2015 Office visit Molly Ramirez MANUFACTURING PLANT CONTROLLER 01/05/2015 Office visit Atilio Bey MANUFACTURING PLANT CONTROLLER 10/28/2013 Office visit Atilio Bey MANUFACTURING PLANT CONTROLLER 07/08/2013 Office visit Atilio Bey MANUFACTURING PLANT CONTROLLER 06/03/2013 Office visit Atilio Bey MANUFACTURING PLANT CONTROLLER 11/10/2011 Office visit Luis Fernando Rice MD [...] Office visit Luis Fernando Rice MD 10/03/2010 [facility] Luis Fernando Rice MD 10/03/2010 Office visit Luis Fernando Rice MD 09/09/2010 Office visit Luis Fernando Rice MD 08/07/2010 Office visit Luis Fernando Rice MD 07/08/2010 Office visit Luis Fernando Rice MD 06/10/2010 Office visit Luis Fernando Rice MD
--- OUTSIDE RECORDS SUMMARY | 2017-07-16 12:27 | XMS REPORT ---
Author Author Atilio Bey [facility] Address [address] [place], [place] [phone] Care Team Providers Care Crane Manager Name Role Phone Atilio Bey PCP Allergies and Adverse Reactions Name Reaction Notes PENICILLINS neck swelling Plan of Treatment Planned Activity Comments Planned Date Planned Time Plan/Goal URINALYSIS AUTO W/SCOPE 02/19/2015 12:00 AM Medications Active Name Start Date Estimated Completion Date SIG Comments Zoloft 50 mg oral tablet 01/05/2015 07/04/2015 take 1 tablet (50 mg) by oral route once daily for 30 days Name Start Date Expiration Date SIG [...] 2 times per day for 7 days alprazolam 0.5 mg oral tablet 01/05/2015 02/04/2015 take 1 tablet (0.5 mg) by oral route 3 times per day for 30 days Cipro 500 mg oral tablet 01/05/2015 01/12/2015 take 1 tablet (500 mg) by oral route every 12 hours for 7 days Discontinued Name Start Date Discontinued Date SIG Comments Premesis Rx 1-200-75-12 vo-ci-ro-mcg oral tablet, ER multiphase 24 hr 201006/10/2010 [...] 2015 11:23AM Dysuria Feb 19 2015 3:06PM Payers Insurance Name Company Name Plan Name Plan Number Policy Number Policy Group Number Start Date [facility] Financial Assistance [facility] Financial [place] 50 PERCENT , April 06, 2014 [facility] [id number] [facility]A [id number] [place] Medical Assistance [facility] Prog [id number] N/A History of Encounters Visit Date Visit Type Provider 01/05/2015 Office visit Atilio Bey BUILDING CONSTRUCTION CONTRACTOR 10/28/2013 Office visit Atilio Bey BUILDING CONSTRUCTION CONTRACTOR 07/08/2013 Office visit Atilio Bey BUILDING CONSTRUCTION CONTRACTOR 06/03/2013 Office visit Atilio Bey APRN 11/10/2011 [...] Office visit Luis Fernando Rice MD 10/03/2010 [facility] Luis Fernando Rice MD 10/03/2010 Office visit Luis Fernando Rice MD 09/09/2010 Office visit Luis Fernando Rice MD 08/07/2010 Office visit Luis Fernando Rice MD 07/08/2010 Office visit Luis Fernando Rice MD 06/10/2010 Office visit Luis Fernando Rice MD
--- OUTSIDE RECORDS SUMMARY | 2017-07-16 12:28 | XMS REPORT ---
Author Atilio Rene [facility] Address [address] [place], [place] [address] Care Team Providers Care Spinning Frame Cleaner Name Role Phone Atilio Bey PCP Atilio Bey PreferredProvider Allergies and Adverse Reactions Name Reaction Notes PENICILLINS neck swelling Plan of Treatment Planned Activity Comments Planned Date Planned Time Plan/Goal UA with Culture and Sensitivity, if indicated 02/19/2015 12:00 AM Medications Active Name Start Date Estimated Completion Date SIG Comments alprazolam 0.5 mg oral tablet 02/22/2016 03/23/2016 take 1 tablet (0.5 mg) by oral route 3 times per day for 30 days Name Start Date Expiration [...] oral route once daily for 4 days Zoloft 50 mg oral tablet 08/29/2015 02/25/2016 take 1 tablet (50 mg) by oral route once daily for 30 days Augmentin 875-125 mg oral tablet 02/27/2016 03/05/2016 take 1 tablet by oral route every 12 hours for 7 days Discontinued Name Start Date Discontinued Date SIG Comments Premesis Rx 1-200-75-12 pu-tq-ug-mcg oral tablet, ER multiphase 24 hr 201006/10/2010 take 1 tablet by oral route once daily for 30 days Completion of Therapy Problem List Description Status Onset abnormal pap Active Depression and anxiety Active 11/01/2013 Vital Signs Date Time BP-Sys(mm[Hg] BP-Josee(mm[Hg]) HR(bpm) RR(rpm) Temp WT HT HC BMI BSA BMI Percentile O2 Sat(%) 02/27/2016 5:28:00 PM 102 mmHg 70 mmHg [...] 02/27/2016 12:00 AM Decadron, Per 1 Mg [facility]# [address]-73 Reviewed 02/27/2016 12:00 AM Depo-Medrol, Per 80 Mg [facility]#[address]-98 Reviewed 11/10/2011 12:00 AM TRICHOMONAS ASSAY W/OPTIC Reviewed 11/10/2011 12:00 AM CHYLMD TRACH DNA AMP PROBE Reviewed 11/10/2011 12:00 AM N.GONORRHOEAE DNA AMP PROB Reviewed 06/10/2010 12:00 AM CYTOPATH C/V THIN [...] 2015 4:29PM Bronchitis Feb 27 2016 5:32PM Payers Insurance Name Company Name Plan Name Plan Number Policy Number Policy Group Number Start Date [place] Medical Assistance Program [place] Prog [id number] N/A [employer] Financial Assistance [facility] Financial [place] 50 PERCENT April zzzTest Medicare A Test Medicare A [id number] N/A BCBS [facility] [id number] N/A History of Encounters Visit Date Visit Type Provider 02/27/2016 Office visit Atilio Bey APRN 08/29/2015 Office visit Atilio Bey APRN 08/11/2015 Office visit Molly Ramirez APRN 01/05/2015 Office visit Atilio Bey APRN 10/28/2013 Office visit Atilio Bey APRN 07/08/2013 Office visit Atilio Bey APRN 06/03/2013 Office visit Atilio Bey APRN 11/10/2011 [...]
--- OUTSIDE RECORDS SUMMARY | 2017-07-16 12:28 | XMS REPORT ---
Author Author Molly Ramirez [facility] Address [address] [place], [place] [id number] Care Team Providers Care Station Baggage Agent Name Role Phone Molly Ramirez PCP Unavailable Allergies and Adverse Reactions Name Reaction Notes PENICILLINS neck swelling Plan of Treatment Planned Activity Comments Planned Date Planned Time Plan/Goal URINALYSIS AUTO W/SCOPE 02/19/2015 12:00 AM Medications Active Name Start Date Estimated Completion Date SIG Comments azithromycin 250 mg oral tablet 08/11/2015 08/16/2015 take 2 tablets (500 mg) by oral route once daily for 1 day then 1 tablet (250 mg) by oral route once daily for 4 days Name Start Date Expiration Date SIG [...] 2 times per day for 7 days Zoloft 50 mg oral tablet 01/05/2015 07/04/2015 take 1 tablet (50 mg) by oral route once daily for 30 days Cipro 500 mg oral tablet 01/05/2015 01/12/2015 take 1 tablet (500 mg) by oral route every 12 hours for 7 days alprazolam 0.5 mg oral tablet 04/19/2015 05/19/2015 take 1 tablet (0.5 mg) by oral route 3 times per day for 30 days Discontinued Name Start Date Discontinued Date SIG Comments Premesis Rx 1-200-75-12 pg-lk-am-mcg oral tablet, ER multiphase 24 hr 201006/10/2010 take 1 tablet by oral route once daily for 30 days Completion of Therapy Problem List Description Status Onset abnormal pap Active Depression and anxiety Active 11/01/2013 Vital Signs Date Time BP-Sys(mm[Hg] BP-Josee(mm[Hg]) HR(bpm) RR(rpm) Temp WT HT HC BMI BSA BMI Percentile O2 Sat(%) 08/11/2015 1:32:00 PM 120 mmHg 80 mmHg [...] F 139.375 lbs 60 in 27.22 kg/m2 1.6359 m 02/18/2011 4:03:00 PM 114 mmHg 68 mmHg 83 bpm 97.6 F 01/27/2011 10:50:00 AM 105 mmHg 72 mmHg 70 bpm 97.6 F 146 lbs 60 in 28.51 kg/m2 1.6744 m 06/10/2010 9:37:00 AM 105 mmHg 65 mmHg 94 bpm 98.2 F 143 lbs 60 in 27.9275 kg/m 1.66 m2 Social History Name Description Comments [...] Upper respiratory infection Aug 11 2015 1:34PM Payers Insurance Name Company Name Plan Name Plan Number Policy Number Policy Group Number Start Date [place] Medical [place] Program [place] Prog [id number] N/A [facility] Financial Assistance [facility] Financial [place] 50 PERCENT April zzzTest Medicare A Test Medicare A [id number] N/A BCBS [employer] [place] [id number] N/A History of Encounters Visit Date Visit Type Provider 08/11/2015 Office visit Molly Ramirez BALLISTICS LABORATORY GUNSMITH 01/05/2015 Office visit Atilio Bey BALLISTICS LABORATORY GUNSMITH 10/28/2013 Office visit Atilio Bey BALLISTICS LABORATORY GUNSMITH 07/08/2013 Office visit Atilio Bey BALLISTICS LABORATORY GUNSMITH 06/03/2013 Office visit Atilio Bey APRN 11/10/2011 [...] Office visit Luis Fernando Rice MD 10/03/2010 [facility] Luis Fernando Rice MD 10/03/2010 Office visit Luis Fernando Rice MD 09/09/2010 Office visit Luis Fernando Rice MD 08/07/2010 Office visit Luis Fernando Rice MD 07/08/2010 Office visit Luis Fernando Rice MD 06/10/2010 Office visit Luis Fernando Rice MD
--- OUTSIDE RECORDS SUMMARY | 2017-07-16 12:29 | XMS REPORT ---
Author Author Atilio Bey [facility] Address [address] [place], [place] [id number] Care Team Providers Care Chinese Medicine Practitioner Name Role Phone Atilio Bey PCP Atilio Bey PreferredProvider Allergies and Adverse Reactions Name Reaction Notes PENICILLINS neck swelling Plan of Treatment Not available. Medications Active Name Start Date Estimated Completion Date SIG Comments alprazolam 1 mg oral tablet 02/06/2017 take 1 tablet by oral route 2 times a day as needed Breakthrough anxiety. No more than 2 a day Proventil HFA 90 mcg/actuation inhalation HFA aerosol inhaler 02/28/2017 inhale 1 - 2 puffs (90 - 180 mcg) by inhalation route every 6 hours as needed for 30 days prednisone 20 mg oral tablet 02/28/2017 take 1 tablet (20 mg) by oral route once daily for 5 days Diflucan 150 mg oral tablet 03/16/2017 take 1 tablet (150 mg) by oral route once Tamiflu 75 mg oral capsule 05/18/2017 take 1 capsule (75 mg) by oral route 2 times per day for 5 days Name Start Date Expiration Date SIG [...] as a single dose for 1 day azithromycin 250 mg oral tablet 02/28/2017 take 2 tablets (500 mg) by oral route once daily for 1 day then 1 tablet (250 mg) by oral route once daily for 4 days Discontinued Name Start Date Discontinued Date SIG Comments Premesis Rx 1-200-75-12 xs-cx-qa-mcg oral tablet, ER multiphase 24 hr 201006/10/2010 take 1 tablet by oral route once daily for 30 days Completion of Therapy Problem List Description Status Onset abnormal pap Active Depression and anxiety Active 11/01/2013 Vital Signs Date Time BP-Sys(mm[Hg] BP-Josee(mm[Hg]) HR(bpm) RR(rpm) Temp WT HT HC BMI BSA BMI Percentile O2 Sat(%) 03/16/2017 6:31:00 PM 108 mmHg 70 mmHg 92 bpm 97.6 F 161 lbs 61 in 30.4204 kg/m 1.7729 m 100 % 02/28/2017 1:35:00 PM 118 mmHg 80 mmHg 80 bpm 20 rpm 98.7 F 160.125 lbs 61 in 30.26 kg/m2 1.77 m2 98 % 02/06/2017 11:16:00 AM 98 mmHg 62 mmHg 76 bpm 18 rpm 96.7 F 161.5 lbs 61 in 30.5148 kg/m 1.7756 m 96 % 01/09/2017 10:46:00 AM 120 mmHg [...] 02/27/2016 12:00 AM Decadron, Per 1 Mg [facility]# [id number] Reviewed 02/27/2016 12:00 AM Depo-Medrol, Per 80 Mg [facility]#[id number] Reviewed 11/10/2011 12:00 AM TRICHOMONAS ASSAY W/OPTIC [...] 2017 10:48AM Anxiety Feb 06 2017 11:19AM Wheezing Feb 28 2017 1:39PM Acute upper respiratory infection Feb 28 2017 1:39PM Yeast infection of the vagina Mar 16 2017 6:36PM Payers Insurance Name Company Name Plan Name Plan Number Policy Number Policy Group Number Start Date [facility] [id number] N/A [place] Prog [id number] N/A [employer] Financial Assistance [employer] Financial [place] 50 PERCENT April zzzTest Medicare A Test Medicare A [id number] N/A BCBS Bcbs [facility] [id number] N/A History of Encounters Visit Date Visit Type Provider 03/16/2017 Office visit Atilio Bey SIGNALMAN 02/28/2017 Office visit Alexa Rowe SIGNALMAN 02/06/2017 Office visit Atilio Bey SIGNALMAN 01/09/2017 Office visit Atilio Bey SIGNALMAN 12/18/2016 Office visit Alexa Rowe SIGNALMAN 11/13/2016 Office visit Shayna Ferro SIGNALMAN 06/19/2016 Office visit Atilio Bey SIGNALMAN 02/27/2016 Office visit Atilio Bey SIGNALMAN 08/29/2015 Office visit Atilio Bey SIGNALMAN 08/11/2015 Office visit Molly Ramirez SIGNALMAN 01/05/2015 Office visit Atilio Bey APRN 10/28/2013 Office visit Atilio Bey APRN 07/08/2013 Office visit Atilio eBy SIGNALMAN 06/03/2013 Office visit Atilio Bey APRN 11/10/2011 [...] Office visit Luis Fernando Rice MD 10/03/2010 [facility] Luis Fernando Rice MD 10/03/2010 Office visit Luis Fernando Rice MD 09/09/2010 Office visit Luis Fernando Rice MD 08/07/2010 Office visit Luis Fernando Rice MD 07/08/2010 Office visit Luis Fernando Rice MD 06/10/2010 Office visit Luis Fernando Rice MD
--- OUTSIDE RECORDS SUMMARY | 2017-07-16 12:29 | XMS REPORT ---
Author Author Atilio Bey [facility] Address [address] [place], [place] [address] Care Team Providers Care I&C Technician Name Role Phone Atilio Bey PCP Atilio [...] tablet (150 mg) by oral route once Name Start Date Expiration Date SIG Comments [...] Discontinued Date SIG Comments Premesis Rx 1-200-75-12 xv-bk-uc-mcg oral tablet, ER multiphase 24 hr 201006/10/2010 [...] bpm 97.6 F 161 lbs 61 in 30.42 kg/m2 1.77 m2 100 % 02/28/2017 1:35:00 PM 118 mmHg 80 mmHg 80 bpm 20 rpm 98.7 F 160.125 lbs 61 in 30.255 kg/m 1.768 m 98 % 02/06/2017 11:16:00 AM 98 mmHg [...] Decadron, Per 1 Mg [facility]# [id number] Reviewed 02/27/2016 12:00 AM Depo-Medrol, Per 80 Mg [facility]#[id number] Reviewed 11/10/2011 12:00 AM TRICHOMONAS ASSAY W/OPTIC [...] Policy Number Policy Group Number Start Date [facility] [id number] N/A [place] Prog [id number] N/A [employer] Financial Assistance [employer] Financial [place] 50 PERCENT April zzzTest Medicare A Test Medicare A [id number] N/A BCBS [employer] [place] [id number] N/A History of Encounters Visit Date Visit Type Provider 03/16/2017 Office visit Atilio Bey LIFE SCIENCE TAXONOMIST 02/28/2017 Office visit Alexa Rowe LIFE SCIENCE TAXONOMIST 02/06/2017 Office visit Atilio Bey LIFE SCIENCE TAXONOMIST 01/09/2017 Office visit Atilio Bey LIFE SCIENCE TAXONOMIST 12/18/2016 Office visit Alexa Rowe LIFE SCIENCE TAXONOMIST 11/13/2016 Office visit Shayna Ferro LIFE SCIENCE TAXONOMIST 06/19/2016 Office visit Atilio Bey LIFE SCIENCE TAXONOMIST 02/27/2016 Office visit Atilio Bey LIFE SCIENCE TAXONOMIST 08/29/2015 Office visit Atilio Bey LIFE SCIENCE TAXONOMIST 08/11/2015 Office visit Molly Ramirez LIFE SCIENCE TAXONOMIST 01/05/2015 Office visit Atilio Bey LIFE SCIENCE TAXONOMIST 10/28/2013 Office visit Atilio Bey LIFE SCIENCE TAXONOMIST 07/08/2013 Office visit Atilio Bey LIFE SCIENCE TAXONOMIST 06/03/2013 Office visit Atilio Bey LIFE SCIENCE TAXONOMIST 11/10/2011 Office visit Luis Fernando Rice MD [...]
--- OUTSIDE RECORDS SUMMARY | 2017-07-16 12:30 | XMS REPORT ---
Author Author Atilio Bey [facility] Address [address] [place], [place] [id number] Care Team Providers Care Sheather Name Role Phone Atilio Bey PCP Atilio [...] Discontinued Date SIG Comments Premesis Rx 1-200-75-12 wn-qk-ch-mcg oral tablet, ER multiphase 24 hr 201006/10/2010 [...] 12:00 AM Decadron, Per [address] [facility]# [id number] Reviewed 02/27/2016 12:00 AM Depo-Medrol, Per [address] [facility]#[id number] Reviewed 11/10/2011 12:00 AM TRICHOMONAS ASSAY W/OPTIC [...] Policy Group Number Start Date [facility] [id number] N/A [place] Assistance Prog [id number] N/A [employer] Financial [place] 50 PERCENT April zzzTest Medicare A Test Medicare A [id number] N/A BCBS [employer] [place] [id number] N/A History of Encounters Visit Date Visit Type Provider 03/16/2017 Office visit Atilio Bey LEAD PRESSMAN 02/28/2017 Office visit Alexa Rowe LEAD PRESSMAN 02/06/2017 Office visit Atilio Bey LEAD PRESSMAN 01/09/2017 Office visit Atilio Bey LEAD PRESSMAN 12/18/2016 Office visit Alexa Rowe LEAD PRESSMAN 11/13/2016 Office visit Shayna Ferro LEAD PRESSMAN 06/19/2016 Office visit Atilio Bey LEAD PRESSMAN 02/27/2016 Office visit Atilio Bey LEAD PRESSMAN 08/29/2015 Office visit Atilio Bey LEAD PRESSMAN 08/11/2015 Office visit Molly Ramirez LEAD PRESSMAN 01/05/2015 Office visit Atilio Bey LEAD PRESSMAN 10/28/2013 Office visit Atilio Bey LEAD PRESSMAN 07/08/2013 Office visit Atilio Bey LEAD PRESSMAN 06/03/2013 Office visit Atilio Bey LEAD PRESSMAN 11/10/2011 Office visit Luis Fernando Rice MD [...] Office visit Luis Fernando Rice MD 10/03/2010 [facility] Luis Fernando Rice MD 10/03/2010 Office visit Luis Fernando Rice MD 09/09/2010 Office visit Luis Fernando Rice MD 08/07/2010 Office visit Luis Fernando Rice MD 07/08/2010 Office visit Luis Fernando Rice MD 06/10/2010 Office visit Luis Fernando Rice MD
--- OUTSIDE RECORDS SUMMARY | 2017-07-16 12:30 | XMS REPORT ---
Author Author Atilio Bey [facility] Address [address] [place], [place] [phone] Care Team Providers Care Audio Visual Coordinator Name Role Phone Atilio Bey PCP Allergies and Adverse Reactions Name Reaction Notes PENICILLINS neck swelling Plan of Treatment Planned Activity Comments Planned Date Planned Time Plan/Goal URINALYSIS AUTO W/SCOPE 02/19/2015 12:00 AM Medications Active Name Start Date Estimated Completion Date SIG Comments alprazolam 0.5 mg oral tablet 08/29/2015 09/28/2015 take 1 tablet (0.5 mg) by oral route 3 times per day for 30 days Zoloft 50 mg oral tablet 08/29/2015 [...] Discontinued Date SIG Comments Premesis Rx 1-200-75-12 ef-rp-wf-mcg oral tablet, ER multiphase 24 hr 201006/10/2010 take 1 tablet by oral route once daily for 30 days Completion of Therapy Problem List Description Status Onset abnormal pap Active Depression and anxiety Active 11/01/2013 Vital Signs Date Time BP-Sys(mm[Hg] BP-Josee(mm[Hg]) HR(bpm) RR(rpm) Temp WT HT HC BMI BSA BMI Percentile O2 Sat(%) 08/29/2015 4:27:00 PM 110 mmHg 70 mmHg [...] Depression and anxiety Aug 29 2015 4:29PM Payers Insurance Name Company Name Plan Name Plan Number Policy Number Policy Group Number Start Date [place] Prog [id number] N/A [facility] Financial Assistance [employer] [place] 50 PERCENT April zzzTest Medicare A Test Medicare A [id number] N/A BCBS [employer] [place] [id number] N/A History of Encounters Visit Date Visit Type Provider 08/29/2015 Office visit Atilio Bey APRN 08/11/2015 [...] Office visit Luis Fernando Rice MD 10/03/2010 [facility] Luis Fernando Rice MD 10/03/2010 Office visit Luis Fernando Rice MD 09/09/2010 Office visit Luis Fernando Rice MD 08/07/2010 Office visit Luis Fernando Rice MD 07/08/2010 Office visit Luis Fernando Rice MD 06/10/2010 Office visit Luis Fernando Rice MD
--- OUTSIDE RECORDS SUMMARY | 2017-07-16 12:31 | XMS REPORT ---
Author Author Atilio Bey [facility] Address [address] [place], [place] [address] Care Team Providers Care Batch Plant Operator Name Role Phone Atilio Bey PCP Atilio [...] 2 times per day for 30 days alprazolam 0.5 mg oral [...] Discontinued Date SIG Comments Premesis Rx 1-200-75-12 gn-br-fi-mcg oral tablet, ER multiphase 24 hr 201006/10/2010 take 1 tablet by oral route once daily for 30 days Completion of Therapy Problem List Description Status Onset abnormal pap Active Depression and anxiety Active 11/01/2013 Vital Signs Date Time BP-Sys(mm[Hg] BP-Josee(mm[Hg]) HR(bpm) RR(rpm) Temp WT HT HC BMI BSA BMI Percentile O2 Sat(%) 06/19/2016 3:14:00 PM 110 mmHg 66 mmHg [...] 12:00 AM Decadron, Per 1 Mg [facility]# [address]-27 Reviewed 02/27/2016 12:00 AM Depo-Medrol, Per 80 Mg [facility]#[address]-27 Reviewed 11/10/2011 12:00 AM TRICHOMONAS ASSAY W/OPTIC [...] associated with depression Jun 19 2016 3:17PM Payers Insurance Name Company Name Plan Name Plan Number Policy Number Policy Group Number Start Date [facility] [id number] N/A [place] Prog [id number] N/A [employer] Financial Assistance [employer] Financial [employer] 50 PERCENT April zzzTest Medicare A Test Medicare A [id number] N/[facility] [id number] N/A History of Encounters Visit Date Visit Type Provider 06/19/2016 Office visit tAilio Bey SWITCH HOUSE OPERATOR 02/27/2016 Office visit Atilio Bey SWITCH HOUSE OPERATOR 08/29/2015 Office visit Atilio Bey SWITCH HOUSE OPERATOR 08/11/2015 Office visit Molly Ramirez SWITCH HOUSE OPERATOR 01/05/2015 Office visit Atilio Bey SWITCH HOUSE OPERATOR 10/28/2013 Office visit Atilio Bey SWITCH HOUSE OPERATOR 07/08/2013 Office visit Atilio Bey SWITCH HOUSE OPERATOR 06/03/2013 Office visit Atilio Bey SWITCH HOUSE OPERATOR 11/10/2011 Office visit Luis Fernando Rice MD [...]
--- OUTSIDE RECORDS SUMMARY | 2017-07-16 12:31 | XMS REPORT ---
Author Author Atilio Bey [facility] Address [address] [place], [place] [address] Care Team Providers Care Customer Service Teller Name Role Phone Atilio Bey PCP Atilio [...] Discontinued Date SIG Comments Premesis Rx 1-200-75-12 wu-ty-pd-mcg oral tablet, ER multiphase 24 hr 201006/10/2010 [...] 02/27/2016 12:00 AM Decadron, Per [address] [facility]# [id number] Reviewed 02/27/2016 12:00 AM Depo-Medrol, Per [address] [facility]#[address]-31 Reviewed 11/10/2011 12:00 AM TRICHOMONAS ASSAY W/OPTIC [...] Policy Number Policy Group Number Start Date [facility] [id number] N/A [place] Prog [id number] N/A [employer] Financial Assistance [employer] Financial [place] 50 PERCENT April zzzTest Medicare A Test Medicare A [id number] N/A BCBS [employer] [place] [id number] N/A History of Encounters Visit Date Visit Type Provider 01/09/2017 Office visit Atilio Bey GYNECOLOGICAL ASSISTANT 12/18/2016 Office visit Alexa Rowe GYNECOLOGICAL ASSISTANT 11/13/2016 Office visit Shayna Ferro GYNECOLOGICAL ASSISTANT 06/19/2016 Office visit Atilio Bey GYNECOLOGICAL ASSISTANT 02/27/2016 Office visit Atilio Bey GYNECOLOGICAL ASSISTANT 08/29/2015 Office visit Atilio Bey GYNECOLOGICAL ASSISTANT 08/11/2015 Office visit Molly Ramirez GYNECOLOGICAL ASSISTANT 01/05/2015 Office visit Atilio Bey GYNECOLOGICAL ASSISTANT 10/28/2013 Office visit Atilio Bey GYNECOLOGICAL ASSISTANT 07/08/2013 Office visit Atilio Bey GYNECOLOGICAL ASSISTANT 06/03/2013 Office visit Atilio Bey GYNECOLOGICAL ASSISTANT 11/10/2011 Office visit Luis Fernando Rice MD [...] Office visit Luis Fernando Rice MD 10/03/2010 [facility] Luis Fernando Rice MD 10/03/2010 Office visit Luis Fernando Rice MD 09/09/2010 Office visit Luis Fernando Rice MD 08/07/2010 Office visit Luis Fernando Rice MD 07/08/2010 Office visit Luis Fernando Rice MD 06/10/2010 Office visit Luis Fernando Rice MD
--- OUTSIDE RECORDS SUMMARY | 2017-07-16 12:31 | XMS REPORT | Continuity of Care Document ---
Author Author [facility] Organization [facility] Address Unknown Phone Unavailable Allergies There is no data. Medications There is no data. Problems There is no data. Procedures There is no data. Results There is no data. Encounters ACCT No. Visit Date/Time Discharge Status Pt. Type Provider Facility Loc./Unit Complaint [id number] 03/16/2017 19:18:06 03/16/2017 23:59:59 [facility] Outpatient Atilio Bey [id number] 02/28/2017 13:29:38 02/28/2017 23:59:59 C[facility] Outpatient Alexa Rowe [id number] 02/06/2017 12:08:30 02/06/2017 23:59:59 CLS Outpatient Atilio Bey [id number] 01/09/2017 11:39:50 01/09/2017 23:59:59 CLS Outpatient Atilio Bey [id number] 12/18/2016 18:13:23 12/18/2016 23:59:59 CLS Outpatient Marcos Rowemy Becca [id number] 11/13/2016 14:06:44 11/13/2016 23:59:59 CLS Outpatient Pillo Shayna M [id number] 06/19/2016 16:08:21 06/19/2016 23:59:59 [facility] Outpatient Atilio Bey [id number] 02/27/2016 18:26:06 02/27/2016 23:59:59 CLS Outpatient Atilio Bey [id number] 01/05/2015 12:45:40 01/05/2015 23:59:59 [facility] Outpatient Atilio Bey [id number] 10/28/2013 14:20:17 10/28/2013 23:59:59 [facility] Outpatient Atilio Bey [id number] 07/08/2013 14:36:19 07/08/2013 23:59:59 [facility] Outpatient Atilio Bey [id number] 06/03/2013 15:42:01 06/03/2013 23:59:59 [facility] Outpatient Atilio Bey
--- NOTE | 2017-07-16 15:45 | RADIOLOGY REPORT ---
NAME: SAULO MINAYA [facility] REC#: [id number] PT STATUS: DEP ER : 1980 PHYSICIAN: SANTIAGO MAYFIELD MD ADMIT DATE: 07/16/17/ER Signed Date of Exam:07/16/17 US OB < 14 WKS SINGLR W/TRANSVAG PROCEDURE: US OB <14 WKS SINGLE W/TRANSVAG. TECHNIQUE: Multiple real-time grayscale images were obtained over the gravid uterus in various projections. INDICATION: Pelvic pain. Vaginal bleeding. COMPARISON: None. FINDINGS: There is a well-circumscribed fluid collection within the endometrial canal containing layering blood products or debris. This fluid collection measures approximately 4.8 x 10.4 x 4.3 cm. No pole is identified. The cervix appears open. Normal echogenicity of the uterus which measures approximately 16.3 x 7.8 x 8.3 cm. The ovaries are not identified. No free fluid in the pelvis. IMPRESSION: Large well-circumscribed fluid collection in the endometrial canal measuring up to 10.4 cm. The cervix appears widely patent. There is layering debris or blood products within this fluid collection. No pole is identified. Dictated by: Dictated on workstation # [id number] Dict: 07/16/17 0651 Trans: 07/16/17 1200 [facility] [id number] Interpreted by: FELA KING MD Electronically signed by: FELA KING MD 07/16/17 1200 [facility]
== END 2017-07-16 04:45 | disposition home or self-care (01) ==
LOC: ER 01:19
DX: O03.4 Incomplete spontaneous abortion without complication (principal); O99.332 Smoking (tobacco) complicating pregnancy, second trimester; F17.210 Nicotine dependence, cigarettes, uncomplicated; Z3A.14 14 weeks gestation of pregnancy
CPT/HCPCS: 36415; 76801; 76817; 80053; 80320; 83735; 84484; 84702; 85007; 85027; 86900; 86901; 96374; 96375